=== PATIENT | male | born 1980 | race Caucasian/White ===

== ENCOUNTER 2016-09-20 15:46 | Emergency (ER) | payer BC ==
[~2016-09-20] VITALS: Ht 167.6 cm; Wt 91.5 kg
[2016-09-20 15:47] VITALS: Ht 167.6 cm; Wt 91.5 kg
[2016-09-20] MEDS ORDERED: SULF1TAB31 PO (16:05)
[2016-09-20] MEDS ORDERED: CEPH-443 PO (16:05)
--- NOTE | 2016-09-20 16:10 | ERD ---
ER Documentation Chief Complaint Date/Time DATE: 09/20/16 TIME: 16:08 Chief Complaint nose pain/redness/swelling x 4 days HPI Patient is a 36-year-old male with no medical problems who presents with "infection to the nose". He said that it started as a pimple but has gotten worse. It is on the left side of his nose. He tried to pop it. He has pain in the left sinus as well currently. He said the symptoms started 3-4 days ago. He has had no fevers. He tried Advil. He does have a primary doctor. ROS All systems reviewed and are negative except as per history of present illness. Medications Home Meds Active Scripts Sulfamethoxazole/Trimethoprim* (Bactrim Ds* Tablet) 1 Each Tablet, 1 TAB PO BID , #14 TAB Prov:HARDY ESCALONA MD 09/20/16 Cephalexin* (Keflex*) 500 Mg Capsule, 500 MG PO QID for 7 Days, CAP Prov:HARDY ESCALONA MD 09/20/16 Allergies Allergies: Coded Allergies: No Known Allergy (Unverified , 09/20/16) PMhx/Soc Medical and Surgical Hx: pt denies Medical Hx History of Surgery: No Anesthesia Reaction: No Hx Neurological Disorder: No Hx Respiratory Disorders: No Hx Cardiac Disorders: No Hx Psychiatric Problems: No Hx Miscellaneous Medical Probl: No Hx Alcohol Use: No Hx Substance Use: No Hx Tobacco Use: No Smoking Status: Never smoker FmHx Family History: diabetes Physical Exam Vitals Vital Signs Date Time Temp Pulse Resp B/P Pulse Ox O2 Delivery O2 Flow Rate FiO2 09/20/16 15:47 97.8 86 16 142/82 99 Physical Exam Const: No acute distress Head: Atraumatic Eyes: Normal Conjunctiva ENT: Redness to the tip of the nose without vesicle formation, there is swelling to the left nose as well consistent with cellulitis Neck: Full range of motion..~ No meningismus. Resp: Clear to auscultation bilaterally Cardio: Regular rate and rhythm, no murmurs Abd: Soft, non tender, non distended. Normal bowel sounds Skin: Cellulitis of the left nares Back: No midline or flank tenderness Ext: No cyanosis, or edema Neur: Awake and alert Psych: Normal Mood and Affect Procedures/MDM Patient is a 36-year-old male presents with what appears to be an acute cellulitis to the nose. The patient will be given Keflex and Bactrim. The patient is otherwise well-appearing. He does not appear septic at this time. The patient will need to follow-up with his primary doctor within 24-48 hours for reevaluation. He can return sooner for any worsening symptoms. Departure Diagnosis: Primary Impression: Cellulitis Site of cellulitis: face Qualified Code: L03.211 - Cellulitis of face Condition: Fair Patient Instructions: Cellulitis, Facial Referrals: Dr. Del Cid Additional Instructions: Call your primary care doctor TOMORROW for an appointment during the next 1-2 days.See the doctor sooner or return here if your condition worsens before your appointment time. HARDY ESCALONA MD Sep 20, 2016 16:10
== END 2016-09-20 16:18 | disposition home or self-care (01) ==
LOC: FTE 15:46
DX: L03.211 Cellulitis of face (principal)
CPT/HCPCS: 99284